=== PATIENT | female | born 1980 | race Caucasian/White ===

== ENCOUNTER 2016-07-09 23:15 | Emergency (ER) | payer MEDICAID ==
[~2016-07-09] VITALS: Ht 165.1 cm; Wt 61.2 kg
[2016-07-09 23:15] VITALS: BP 123/77; PULSE 105; RESP 19; TEMP 97.3; O2SAT 99
--- NOTE | 2016-07-10 00:01 | NUR ---
BROUGHT BACK TO BED #8 AND REPORT GIVEN TO MARY
--- NOTE | 2016-07-10 00:10 | NUR ---
Pt states she "was injecting meth into her veins" and she started feeling 7/10 pain in the injection sites. Sites were raised, tender, and hot to touch. Will continue to monitor. No other injuries or complaints mentioned/noted. No distress noted.
--- NOTE | 2016-07-10 00:10 | NUR ---
ER Dr. Garcia at bedside examining patient.
[2016-07-10 00:52] VITALS: BP 123/77; PULSE 105; RESP 19; TEMP 97.3; O2SAT 99
--- NOTE | 2016-07-10 00:52 | NUR ---
Patient given written and verbal discharge instructions and verbalizes understanding. ER MD discussed with patient the results and treatment provided. Patient in stable condition. ID arm band removed. Rx of Cephalexin, bactrim, and Diflucan given. Patient educated on pain management and to follow up with PMD. Pain Scale 2/10. Opportunity for questions provided and answered.
== END 2016-07-10 00:52 | disposition home or self-care (01) ==
LOC: SED 23:15
DX: L03.114 Cellulitis of left upper limb (principal); L03.113 Cellulitis of right upper limb; F15.10 Other stimulant abuse, uncomplicated; R03.0 Elevated blood-pressure reading, without diagnosis of hypertension
CPT/HCPCS: 99283